=== PATIENT | male | born 1965 | race Caucasian/White ===

== ENCOUNTER 2019-03-25 20:15 | Inpatient (IN) | payer SELFPAY ==
[~2019-03-25] VITALS: Ht 170.2 cm; Wt 103.9 kg
[2019-03-25 22:10] LABS: BASOPHILS % (AUTO) 0.6 % (0.0-2.0); EOSINOPHILS % (AUTO) 1.9 % (1.0-6.0); HEMATOCRIT 23.7 % (41-53); HEMOGLOBIN 7.9 g/dL (13.5-17.5); LYMPHOCYTES # (AUTO) 1.3 K/uL (1.0-4.8); LYMPHOCYTES % (AUTO) 14.9 % (22.0-44.0); MEAN CORPUSCULAR HEMOGLOBIN 28.3 pg (26.0-34.0); MEAN CORPUSCULAR HGB CONC 33.4 G/dL (31.0-37.0); MEAN CORPUSCULAR VOLUME 85 fL (80-100); MONOCYTES # (AUTO) 0.5 K/uL (0.1-1.0); MONOCYTES % (AUTO) 5.3 % (2.0-9.0); NEUTROPHILS # (AUTO) 6.6 K/uL (1.8-7.7); NEUTROPHILS % (AUTO) 77.3 % (40.0-70.0); PLATELET COUNT (AUTO) 252 K/uL (150-450); RED CELL DISTRIBUTION WIDTH 13.7 % (11.5-14.5)
[2019-03-25 22:21] LABS: CALCIUM, TOTAL 8.4 mg/dL (8.8-10.5); CREATININE 7.64 mg/dL (0.60-1.30); POTASSIUM 4.7 mmol/L (3.5-5.1)
[2019-03-25 22:30] LABS: ALBUMIN 3.1 g/dL (3.4-5.0); BILIRUBIN,TOTAL 0.7 mg/dL (0.1-1.0); TOTAL PROTEIN, SERUM 7.6 g/dL (6.4-8.2)
[2019-03-25] MEDS ORDERED: CEFEPIME HCL 1 GM in DEXTROSE 5%-WATER 50 ML IV ONE (23:00)
[2019-03-25] MEDS ORDERED: SODIUM CHLORIDE 0.9% 3,100 ML IV ONE (23:00)
[2019-03-25] MEDS ORDERED: VANCOMYCIN HCL 1 GM/D5% WATER 200 ML IV ONE (23:00)
[2019-03-25 23:22] LABS: CALCIUM, TOTAL 8.3 mg/dL (8.8-10.5); CREATININE 7.5 mg/dL (0.60-1.30); POTASSIUM 4.7 mmol/L (3.5-5.1)
[2019-03-25 23:27] LABS: BILIRUBIN,TOTAL 0.6 mg/dL (0.1-1.0); TOTAL PROTEIN, SERUM 7.2 g/dL (6.4-8.2)
[2019-03-25] MEDS ORDERED: ACETAMINOPHEN 325 MG TABLET PO PRN (23:30)
[2019-03-25] MEDS ORDERED: 0.9% SODIUM CHLORIDE 10 ML SYRINGE IVP PRN (23:30)
[2019-03-25] MEDS ORDERED: ONDANSETRON HCL 4 MG/2 ML VIAL IVP PRN (23:30)
[2019-03-26] MEDS ORDERED: ZOLPIDEM TARTRATE 5 MG TABLET PO PRN
[2019-03-26] MEDS ORDERED: 0.9% SODIUM CHLORIDE 10 ML SYRINGE IVP PRN
[2019-03-26] MEDS ORDERED: ALBUTEROL SULFATE 2.5 MG/0.5 ML NEB SOLUTION NEB PRN
[2019-03-26] MEDS ORDERED: *CLINICAL-CEFEPIME DOSING CLINICAL ONE
[2019-03-26] MEDS ORDERED: ONDANSETRON HCL 4 MG/2 ML VIAL IVP PRN
[2019-03-26] MEDS ORDERED: IPRATROPIUM BROMIDE 0.5 MG/2.5 ML NEB SOLUTION NEB PRN
[2019-03-26] MEDS ORDERED: PENTETATE DTPA TC99M/MCL ISOTOPE 1 EA INJ INJ ONE (00:45)
[2019-03-26 01:01] LABS: C-REACTIVE PROTEIN QUANT 6.99 mg/dL (0.00-0.30)
[2019-03-26 01:16] LABS: ERYTHROCYTE SEDIMENTATION RATE 140 MM/HR (0-15)
[2019-03-26] MEDS: ALBUTEROL SULFATE 2.5 MG/0.5 ML NEB SOLUTION NEB SCH ×3 (01:25→15:10)
[2019-03-26] MEDS: IPRATROPIUM BROMIDE 0.5 MG/2.5 ML NEB SOLUTION NEB SCH ×4 (01:25→21:21)
[2019-03-26] MEDS ORDERED: VANCOMYCIN HCL 1 GM/D5% WATER 200 ML IV ONE (04:00)
[2019-03-26] MEDS ORDERED: VANCOMYCIN HCL 1 GM/D5% WATER 200 ML IV PRN (04:15)
[2019-03-26 06:01] LABS: BASOPHILS % (AUTO) 0.4 % (0.0-2.0); EOSINOPHILS % (AUTO) 0.5 % (1.0-6.0); HEMATOCRIT 23.3 % (41-53); HEMOGLOBIN 7.7 g/dL (13.5-17.5); LYMPHOCYTES # (AUTO) 0.9 K/uL (1.0-4.8); LYMPHOCYTES % (AUTO) 8.3 % (22.0-44.0); MEAN CORPUSCULAR HEMOGLOBIN 28.5 pg (26.0-34.0); MEAN CORPUSCULAR VOLUME 86 fL (80-100); MONOCYTES # (AUTO) 0.4 K/uL (0.1-1.0); MONOCYTES % (AUTO) 3.7 % (2.0-9.0); PLATELET COUNT (AUTO) 219 K/uL (150-450); RED BLOOD CELL COUNT(AUTO) 2.69 MIL/uL (4.50-5.90); RED CELL DISTRIBUTION WIDTH 13.8 % (11.5-14.5)
[2019-03-26 06:02] LABS: NEUTROPHILS % (AUTO) 87.1 % (40.0-70.0)
[2019-03-26 06:14] LABS: ALBUMIN 2.8 g/dL (3.4-5.0); BILIRUBIN,TOTAL 0.7 mg/dL (0.1-1.0); CALCIUM, TOTAL 7.7 mg/dL (8.8-10.5); CREATININE 7.15 mg/dL (0.60-1.30); MAGNESIUM 1.9 mg/dL (1.80-2.40); POTASSIUM 5.1 mmol/L (3.5-5.1)
[2019-03-26] MEDS ORDERED: ENOXAPARIN SODIUM 40 MG/0.4 ML PF SYRINGE SQ SCH (09:00)
[2019-03-26] MEDS: PANTOPRAZOLE SODIUM 40 MG/VIAL IVP SCH (09:45)
[2019-03-26] MEDS: DOCUSATE SODIUM 100 MG CAPSULE PO SCH ×2 (09:45→21:17)
[2019-03-26] MEDS ORDERED: ACETAMINOPHEN 325 MG TABLET ONE (09:56)
[2019-03-26] MEDS ORDERED: VECURONIUM BROMIDE 10 MG/VIAL IVP ONE ×2 (12:00)
[2019-03-26] MEDS ORDERED: ETOMIDATE 2 MG/ML 10 ML VIAL IVP ONE ×2 (12:00)
[2019-03-26 12:12] LABS: BILIRUBIN,URINE NEGATIVE (NEGATIVE); GLUCOSE, URINE (UA) NEGATIVE (NEGATIVE); KETONES,URINE NEGATIVE (NEGATIVE); LEUKOCYTE ESTERASE ,URINE NEGATIVE (NEGATIVE); NITRATE,URINE NEGATIVE (NEGATIVE); OCCULT BLOOD,URINE LARGE (NEGATIVE); PROTEIN,URINE POS 1+ (NEGATIVE); UROBILINOGEN,URINE 0.2 mg/dL (<=1.0)
[2019-03-26] MEDS: AmLODIPine BESYLATE 5 MG TABLET PO SCH (12:51)
[2019-03-26 13:10] LABS: HEMOGLOBIN A1C 6.7 % (4.5-6.2)
[2019-03-26 13:25] LABS: APPEARANCE,URINE SLIGHTLY CLOUDY (CLEAR)
[2019-03-26 13:26] LABS: AMORPHOUS SEDIMENT,UR Few /LPF (None Seen); BACTERIA,URINE None Seen /HPF (None Seen); COARSE GRANULAR CASTS,URINE 0-2 /LPF (None Seen); RBC,URINE 26-50 /HPF (0-2); WBC,URINE 0-2 /HPF (0-5)
[2019-03-26 13:31] LABS: URIC ACID 6.9 mg/dL (2.6-7.2)
[2019-03-26] MEDS: OxyCODONE HCL/ACETAMINOPHEN 5-325 MG TABLET PO PRN ×2 (17:42→21:17)
[2019-03-26 18:45] VITALS: BP 130/84
[2019-03-26 20:34] VITALS: BP 142/89
[2019-03-26] MEDS: LEVALBUTEROL HCL 1.25 MG/0.5 ML NEB SOLUTION NEB SCH (21:21)
[2019-03-26] MEDS ORDERED: SODIUM CHLORIDE 0.9% 500 ML IV ONE (21:25)
[2019-03-26] MEDS ORDERED: CEFEPIME HCL 0.5 GM in DEXTROSE 5%-WATER 50 ML IV SCH (23:00)
[2019-03-27] VITALS (13 sets, daily range): BP systolic 115–175; BP diastolic 76–107
[2019-03-27] MEDS ORDERED: MAA ALBUMIN AGGREGATED TC99M/UD<10MCL ISOTOPE 1 EA INJ INJ ONE (01:45)
[2019-03-27] MEDS: LEVALBUTEROL HCL 1.25 MG/0.5 ML NEB SOLUTION NEB SCH ×3 (01:58→15:01)
[2019-03-27] MEDS: IPRATROPIUM BROMIDE 0.5 MG/2.5 ML NEB SOLUTION NEB SCH ×3 (01:58→15:01)
[2019-03-27] MEDS: OxyCODONE HCL/ACETAMINOPHEN 5-325 MG TABLET PO PRN (03:57)
[2019-03-27 06:14] LABS: BASOPHILS % (AUTO) 0.3 % (0.0-2.0); EOSINOPHILS % (AUTO) 0.6 % (1.0-6.0); LYMPHOCYTES # (AUTO) 0.7 K/uL (1.0-4.8); LYMPHOCYTES % (AUTO) 6.3 % (22.0-44.0); MEAN CORPUSCULAR HEMOGLOBIN 28.4 pg (26.0-34.0); MEAN CORPUSCULAR HGB CONC 32.9 G/dL (31.0-37.0); MEAN CORPUSCULAR VOLUME 87 fL (80-100); MONOCYTES # (AUTO) 0.4 K/uL (0.1-1.0); MONOCYTES % (AUTO) 3.8 % (2.0-9.0); NEUTROPHILS # (AUTO) 9.2 K/uL (1.8-7.7); PLATELET COUNT (AUTO) 223 K/uL (150-450); RED BLOOD CELL COUNT(AUTO) 2.28 MIL/uL (4.50-5.90); RED CELL DISTRIBUTION WIDTH 13.9 % (11.5-14.5)
[2019-03-27 06:37] LABS: CALCIUM, TOTAL 8.5 mg/dL (8.8-10.5); CREATININE 7.17 mg/dL (0.60-1.30); POTASSIUM 5.6 mmol/L (3.5-5.1)
[2019-03-27 06:43] LABS: HEMATOCRIT 19.8 % (41-53); HEMOGLOBIN 6.5 g/dL (13.5-17.5)
[2019-03-27] MEDS ORDERED: SODIUM POLYSTYRENE SULFONATE 15 GM/60 ML SUSPENSION BOTTLE PO ONE (08:45)
[2019-03-27] MEDS: DOCUSATE SODIUM 100 MG CAPSULE PO SCH (09:30)
[2019-03-27] MEDS: PANTOPRAZOLE SODIUM 40 MG/VIAL IVP SCH (09:30)
[2019-03-27] MEDS ORDERED: SODIUM CHLORIDE 0.9% 250 ML IV ONE (10:52)
[2019-03-27] MEDS ORDERED: SODIUM BICARBONATE [ADULT] 8.4% 50 MEQ/50 ML SYRINGE IVP ONE (12:00)
[2019-03-27] MEDS ORDERED: DOPamine HCL/D5W 400 MG/250 ML IV BAG IV ONE (12:00)
[2019-03-27] MEDS ORDERED: 0.9% SODIUM CHLORIDE 250 ML BAG IV ONE (12:00)
[2019-03-27] MEDS ORDERED: EPINEPHrine 1:10,000 [1 MG/10 ML] SYRINGE IVP ONE (12:00)
[2019-03-27] MEDS ORDERED: CALCIUM CHLORIDE 100 MG/ML 10 ML SYRINGE IVP ONE (12:00)
[2019-03-27] MEDS ORDERED: ACETAMINOPHEN 325 MG TABLET PO PRN (12:30)
[2019-03-27] MEDS: AmLODIPine BESYLATE 5 MG TABLET PO SCH (13:43)
[2019-03-27 14:58] LABS: ABG A-A DIFF O2 437.8 mmHg (10-20.0); ABG BASE EXCESS -11.7 mmol/L (-2.0-3.0); ABG CARBOXYHEMOGLOBIN 0.1 % (0.0-1.5); ABG HCO3 15.8 mmol/L (22.0-26.0); ABG METHEMOGLOBIN 0.3 % (0.0-1.5); ABG OXYGEN CONTENT 11.7 mL/dL (15.0-23.0); ABG OXYGEN SATURATION 96.6 % (95.0-98.0); ABG OXYHEMOGLOBIN 96.2 % (94.0-100.0); ABG PCO2 35 mmHg (35-45); ABG PH 7.265 (7.35-7.450); ABG TOTAL HEMOGLOBIN 8.5 G/dL (12.0-18.0); O2 DEVICE,BLOOD GAS BIPAP (ROOM AIR); PO2, ARTERIAL BG 96.4 mmHg (84.0-92.0); SITE, BLOOD GAS RT RADIAL; SOURCE, BLOOD GAS ARTERIAL; TEMPERATURE, FAHRENHEIT, BG 98.6 FAHREN (96.0-98.6)
[2019-03-27 14:59] LABS: SPONTANEOUS VT, BG 600 ml
[2019-03-27] MEDS ORDERED: SODIUM BICARBONATE 650 MG TABLET PO SCH (16:00)
[2019-03-27] MEDS ORDERED: PNEUMOCOCCAL VACCINE POLYVALENT 0.5 ML VIAL [PPSV23] IM ONE (16:15)
[2019-03-27] MEDS ORDERED: PROPOFOL 1000 MG/ISO-OSM 100 ML IV PRN (16:58)
[2019-03-27] MEDS ORDERED: RAPID SEQUENCE KIT [RSI] 1 EACH KIT ONE (17:16)
[2019-03-27] MEDS ORDERED: SODIUM CHLORIDE 0.9% 500 ML IV ONE (17:39)
[2019-03-27] MEDS ORDERED: MethylPREDNISolone SOD SUCC 500 MG in SODIUM CHLORIDE 0.9% 50 ML IV SCH (18:00)
[2019-03-27] MEDS ORDERED: TRANEXAMIC ACID 1,000 MG in DEXTROSE 5%-WATER 50 ML IV ONE (18:00)
[2019-03-27] MEDS ORDERED: EPINEPHrine 2 MG in DEXTROSE 5%-WATER 248 ML IV PRN (18:15)
[2019-03-28 15:11] LABS: ALPHA-1 (IFE & PEP) 0.4 g/dL (0.0-0.4); GAMMA GLOBULINS (IFE & ELP) 1.2 g/dL (0.4-1.8); IGM (IMMUNOFIXATION) 46 mg/dL (20-172)
[2019-03-31 05:10] LABS: ALPHA-1 URINE 1.9 %; ALPHA-2 URINE 4.1 %
== END 2019-03-27 21:00 | disposition expired | DRG 193 ==
LOC: EMS 20:19 → 5N 03-26 17:46 → ICU 03-26 18:25 → 5N 03-27 12:00 → ICU 03-27 17:00
PROVIDERS: ADMIT Internal Medicine; ATTEND Internal Medicine
PROC: 0B9F8ZX Drainage of Right Lower Lung Lobe, Via Natural or Artificial Opening Endoscopic, Diagnostic (ICD-10-PCS; principal; 2019-03-27)
PROC: 0BH17EZ Insertion of Endotracheal Airway into Trachea, Via Natural or Artificial Opening (ICD-10-PCS; 2019-03-27)
PROC: 06HY33Z Insertion of Infusion Device into Lower Vein, Percutaneous Approach (ICD-10-PCS; 2019-03-27)
PROC: 30233N1 Transfusion of Nonautologous Red Blood Cells into Peripheral Vein, Percutaneous Approach (ICD-10-PCS; 2019-03-27)
PROC: 5A09357 Assistance with Respiratory Ventilation, Less than 24 Consecutive Hours, Continuous Positive Airway Pressure (ICD-10-PCS; 2019-03-27)
DX: J18.9 Pneumonia, unspecified organism (principal); J96.01 Acute respiratory failure with hypoxia; R04.2 Hemoptysis; M31.0 Hypersensitivity angiitis; M31.7 Microscopic polyangiitis; I46.9 Cardiac arrest, cause unspecified; D64.9 Anemia, unspecified; I12.9 Hypertensive chronic kidney disease with stage 1 through stage 4 chronic kidney disease, or unspecified chronic kidney disease; E11.22 Type 2 diabetes mellitus with diabetic chronic kidney disease; N18.9 Chronic kidney disease, unspecified; E66.9 Obesity, unspecified; M32.9 Systemic lupus erythematosus, unspecified; E87.5 Hyperkalemia; Z87.891 Personal history of nicotine dependence
CPT/HCPCS: 31624; 71250; 76770; 78582; 82570; 82784; 82805; 83036; 83516; 83520; 83605; 83615; 83735; 84132; 84155; 84156; 84165; 84166; 84300; 84550; 85379; 85651; 86038; 86140; 86160; 86225; 86255; 86256; 86334; 86335; 86803; 86850; 86900; 86901; 86920; 87015; 87040; 87070; 87101; 87205; 87206; 87220; 88108; 88312; 92950; 93005; 94002; 94640; 94660; A9539; A9540; C9113; G0378; J0171; J0692; J1265; J2704; J2930; J3370; J3490; J7040; J7050; J7060; P9016